=== PATIENT | female | born 1990 | race Caucasian/White ===

== ENCOUNTER 2020-01-21 16:45 | Emergency (ER) | payer BC ==
[2020-01-21 16:56] VITALS: BP 111/68; PULSE 75; TEMP 98.5; BMI 23.1
[2020-01-21] MEDS ORDERED: ACETAMINOPHEN 1000 MG/100 ML VIAL (NON FORMULARY) IVPB ONE (17:21)
[2020-01-21] MEDS ORDERED: SODIUM CHLORIDE 0.9% 500 ML INFUS.BAG IV ONE (17:22)
[2020-01-21] MEDS ORDERED: ACETAMINOPHEN INJECTION 100 ML IVPB ONE (17:32)
--- NOTE | 2020-01-21 17:37 | PDOC ---
History of Present Illness - General Chief Complaint: Vaginal Bleeding Stated Complaint: POSSIBLE MISCARRIAGE Time Seen by Provider: 01/21/20 17:06 History Source: Patient Exam Limitations: No Limitations - History of Present Illness Initial Comments: 01/21/20 17:33 Patient is a 30-year-old female with no past medical history who presents to the ED with vaginal bleeding, passing clots and abdominal cramping that started today. She states in the past week she passed 1 clot. She was unable to see her PRESSER MACHINE today so she came to the ED for evaluation. The patient is w ith 1 elective termination in the past. She states she began to bleed heavier this evening so she decided to come to the ED for evaluation. The patient denies any allergies to medications. She has not had an ultrasound to confirm her . Past History - Medical History Allergies/Adverse Reactions: Allergies Allergy/AdvReac Type Severity Reaction Status Date / Time No Known Allergies Allergy Verified 01/21/20 16:51 COPD: No - Reproductive History Is Patient Now?: No - Psycho-Social/Smoking History Smoking History: Never smoked Have you smoked in the past 12 months: No - Substance Abuse Hx (Audit-C & DAST Scrn) How often the patient has a drink containing alcohol: Never Score: In Men: 4 or > Positive; In Women: 3 or > Positive: 0 Screen Result (Pos requires Nsg. Audit-10AR): Negative In the last yr the pt used illegal drug/Rx for NonMed reason: No Score: Yes response is considered Positive: 0 Screen Result (Positive result requires Nsg. DAST-10): Negative Review of Systems - Review of Systems Comments:: 01/21/20 17:34 - Review of Systems Able to Perform ROS?: Yes Constitutional: No: Fever, Chills, Loss of Appetite, Night Sweats, Weakness HEENTM: No: Eye Pain, Vision changes, Ear Pain, Throat Pain, Throat Swelling, Mouth Pain, Difficulty Swallowing Respiratory: No: Cough, Shortness of Breath, Wheezing, Sputum Production Cardiac (ROS): No: Chest Pain, Chest Tightness, Palpitations, Irregular Heart Beat, Edema ABD/GI: No: Nausea, Vomiting, Abdominal Pain, Diarrhea : No Dysuria, No Hematuria, No Frequency, No Urgency, positive: Vaginal bleeding in with lower abdominal cramping Musculoskeletal: No: Muscle Pain, Back Pain, Joint Pain, Muscle Weakness, Neck Pain Integumentary: No: Lesions, Rash Neurological: No: Headache, Numbness, Tingling, Weakness, Speech Difficulties *Physical Exam - Vital Signs Last Vital Signs Temp Pulse Resp BP Pulse Ox 98.5 F 75 18 111/68 100 01/21/20 16:51 01/21/20 16:51 01/21/20 16:51 01/21/20 16:51 01/21/20 16:51 - Physical Exam 01/21/20 17:35 - Physical Exam General Appearance: Nourished, Appropriately Dressed, No Distress HEENT: EOMI, Normal Voice, Hearing Grossly Normal Neck: Supple, No Lymphadenopathy (R), No Lymphadenopathy (L), No Rigidity, No De creased range of motion Respiratory/Chest: Lungs Clear, Normal Breath Sounds. No Respiratory Distress, No Accessory Muscle Use Cardiovascular: Regular Rhythm, Regular Rate, S1, S2 Gastrointestinal/Abdominal: Normal Bowel Sounds, Soft. Non-tender, No Guarding, No Rebound, No Rigidity CLUB FORMER: Moderate dark blood in the vaginal vault with evidence of clot and possibly tissue. External os open 1 fingertip. Significant suprapubic tenderness to palpation. Adnexa nontender nonpalpable. No CMT. Musculoskeletal: Normal Inspection. No Decreased Range of Motion Extremity: Normal Capillary Refill, Normal Inspection Integumentary: Normal Color, Dry. No Rash Neurologic: inner layer scrubber tender II-XII NML intact, Fully Oriented, Alert, Normal Mood/Affect, Normal Response ED Treatment Course - LABORATORY CBC & Chemistry Diagram: 01/21/20 17:20 01/21/20 17:20 - ADDITIONAL ORDERS Additional order review: 01/21/20 18:45 Laboratory Tests 01/21/20 01/21/20 01/21/20 17:20 17:20 17:20 Beta HCG, Quant 345.7 Urine Color Yellow Urine Appearance Clear Urine pH 6.5 Ur Specific [place] 1.014 Urine Protein Negative Urine Glucose (UA) Negative Urine Ketones Negative Urine Blood 1+ H Urine Nitrite Negative Urine Bilirubin Negative Urine Urobilinogen 0.2 Ur Leukocyte Esterase Negative Urine WBC (Auto) 10 Urine RBC (Auto) 8 Urine Casts (Auto) 1 U Epithel Cells (Auto) 8 Urine Bacteria (Auto) 428 Urine HCG, Qual Positive Blood Type A POSITIVE Antibody Screen Negative - RADIOLOGY Radiology Studies Ordered: Category Date Time Status TRANSVAGINAL US PREG [US] Stat Ultrasound 01/21/20 17:09 Ordered Medical Decision Making - Medical Decision Making 01/21/20 17:35 Assessment: Patient is a 30-year-old female with vaginal bleeding in . Plan: -Saline lock and labs ordered -Transvaginal ultrasound ordered -1 L of NS ordered -Tylenol IV ordered -Will reassess 01/21/20 18:33 Patient states that she is feeling a little bit better after getting the IV Tylenol. Her PRESSER MACHINE called her and told her that her beta hCG in the office today was 399. She is still pending her beta-hCG in the ED at this time. She is pending ultrasound. 01/21/20 18:45 Patient's beta-hCG in the ED today is 345. Her blood type is a positive and therefore does not require RhoGam. The patient is currently on ultrasound. I have endorsed the patient to [facility] for further evaluation and treatment. The patient was stable at the time of endorsement. Discharge - Discharge Information Problems reviewed: Yes Clinical Impression/Diagnosis: Vaginal bleeding during Condition: Stable - Follow up/Referral - Patient Discharge Instructions - Post Discharge Activity
[2020-01-21 17:58] LABS: BASO % 0.3 % (0-2.0); HEMATOCRIT 38.9 % (32.4-45.2); HEMOGLOBIN 13.5 GM/dL (10.7-15.3); LYMPH % 24.4 % (8-40); MCH 28.7 pg (25.7-33.7); MCHC 34.6 g/dl (32.0-36.0); MEAN PLT VOLUME 9.5 fl (7.5-11.1); MONO % 6.2 % (3.8-10.2); NEUT % 67.1 % (42.8-82.8); PLATELET COUNT 205 K/MM3 (134-434); RBC 4.69 M/mm3 (3.60-5.2); RDW 12.4 % (11.6-15.6); WHITE BLOOD COUNT 10.2 K/mm3 (4.0-10.0)
[2020-01-21 18:06] LABS: INR 1.06 (0.83-1.09); PROTHROMBIN TIME (PATIENT) 12.5 SEC (9.7-13.0)
[2020-01-21 18:09] LABS: ACTIVATED PTT 30.4 SECONDS (25.2-36.5)
[2020-01-21 18:24] LABS: HCG,QUALITATIVE URINE Positive
[2020-01-21 18:34] LABS: ALBUMIN 4.5 g/dl (3.4-5.0); BILIRUBIN,TOTAL 0.4 mg/dL (0.2-1); BLOOD UREA NITROGEN 8.6 mg/dL (7-18); CALCIUM 9.3 mg/dL (8.5-10.1); CREATININE 0.6 mg/dL (0.55-1.3); POTASSIUM 3.8 mmol/L (3.5-5.1); TOT PROT 7.8 g/dl (6.4-8.2)
[2020-01-21 18:44] LABS: EPI CELLS 8 /uL (0-25.1); HYALINE CASTS 1 /uL (0-3.1); PH,URINE 6.5 (5.0-8.0); URINE APPEARANCE CLEAR; URINE BACTERIA 428 /uL (0-1359); URINE BILIRUBIN NEGATIVE (NEGATIVE); URINE COLOR YELLOW; URINE GLUCOSE (UA) NEGATIVE (NEGATIVE); URINE KETONE NEGATIVE (NEGATIVE); URINE LEUK ESTERASE NEGATIVE (NEGATIVE); URINE NITRITE NEGATIVE (NEGATIVE); URINE PROTEIN NEGATIVE (NEGATIVE); URINE RBC 8 /uL (0-23.9); URINE UROBILINOGEN 0.2 mg/dL (0.2-1.0); URINE WBC 10 /uL (0-25.8)
--- NOTE | 2020-01-21 19:17 | PDOC ---
*Physical Exam - Vital Signs Last Vital Signs Temp Pulse Resp BP Pulse Ox 98.5 F 75 18 111/68 100 01/21/20 16:51 01/21/20 16:51 01/21/20 16:51 01/21/20 16:51 01/21/20 16:51 ED Treatment Course - LABORATORY CBC & Chemistry Diagram: 01/21/20 17:20 01/21/20 17:20 - ADDITIONAL ORDERS Additional order review: Laboratory Results 01/21/20 01/21/20 01/21/20 17:20 17:20 17:20 PT with INR INR PTT (Actin FS) Sodium 139 Potassium 3.8 Chloride 106 Carbon Dioxide 27 Anion Gap 6 L BUN 8.6 Creatinine 0.6 Est GFR (CKD-EPI)AfAm 139.78 Est GFR (CKD-EPI)NonAf 120.61 Random Glucose 75 Calcium 9.3 Total Bilirubin 0.4 AST 14 L ALT 20 Alkaline Phosphatase 42 L Total Protein 7.8 Albumin 4.5 Beta HCG, Quant 345.7 Urine Color Yellow Urine Appearance Clear Urine pH 6.5 Ur Specific [place] 1.014 Urine Protein Negative Urine Glucose (UA) Negative Urine Ketones Negative Urine Blood 1+ H Urine Nitrite Negative Urine Bilirubin Negative Urine Urobilinogen 0.2 Ur Leukocyte Esterase Negative Urine WBC (Auto) 10 Urine RBC (Auto) 8 Urine Casts (Auto) 1 U Epithel Cells (Auto) 8 Urine Bacteria (Auto) 428 Urine HCG, Qual Positive Blood Type A POSITIVE Antibody Screen Negative 01/21/20 17:20 PT with INR 12.50 INR 1.06 PTT (Actin FS) 30.4 Sodium Potassium Chloride Carbon Dioxide Anion Gap BUN Creatinine Est GFR (CKD-EPI)AfAm Est GFR (CKD-EPI)NonAf Random Glucose Calcium Total Bilirubin AST ALT Alkaline Phosphatase Total Protein Albumin Beta HCG, Quant Urine Color Urine Appearance Urine pH Ur Specific [place] Urine Protein Urine Glucose (UA) Urine Ketones Urine Blood Urine Nitrite Urine Bilirubin Urine Urobilinogen Ur Leukocyte Esterase Urine WBC (Auto) Urine RBC (Auto) Urine Casts (Auto) U Epithel Cells (Auto) Urine Bacteria (Auto) Urine HCG, Qual Blood Type Antibody Screen 01/21/20 17:20 RBC 4.69 MCV 83.0 MCHC 34.6 RDW 12.4 MPV 9.5 Neutrophils % 67.1 Lymphocytes % 24.4 Monocytes % 6.2 Eosinophils % 2.0 Basophils % 0.3 - Medications Given in the ED: ED Medications Discontinued Medications Generic Name Dose Route Start Last Admin Trade Name Kailyn PRN Reason Stop Dose Admin Acetaminophen 1,000 mg 01/21/20 17:21 01/21/20 17:40 Ofirmev Injection - IVPB 01/21/20 17:22 1,000 mg ONCE ONE Administration Sodium Chloride 1,000 ml 01/21/20 17:22 01/21/20 17:40 Normal Saline - IV 01/21/20 17:23 1,000 ml ONCE ONE Administration Medical Decision Making - Medical Decision Making 01/21/20 19:49 TVUS no IUP. likely missed AB Discharge - Discharge Information Problems reviewed: Yes Clinical Impression/Diagnosis: Vaginal bleeding during , Miscarriage Condition: Stable Disposition: HOME - Follow up/Referral - Patient Discharge Instructions Patient Printed Discharge Instructions: DI for Vaginal Bleeding Additional Instructions: Return to the ER if you are soaking 2 pads per hour, severe abdominal pain, or worsening symptoms. Please follow-up with your RV DETAILER in 1 to 2 days for repeat beta-hCG levels. - Post Discharge Activity Work/Back to School Note: Back to Work
== END 2020-01-21 20:24 | disposition home or self-care (01) ==
LOC: JER 16:45
PROC: 3E0333Z Introduction of Anti-inflammatory into Peripheral Vein, Percutaneous Approach (ICD-10-PCS; principal; 2020-01-21)
DX: O03.9 Complete or unspecified spontaneous abortion without complication (principal)
CPT/HCPCS: 36415; 76817-TC; 80053; 81003; 84702; 84703; 85025; 85610; 85730; 86850; 86900; 86901; 87086; 99284-25; J0131